=== PATIENT | female | born 1950 ===

== ENCOUNTER → 2017-03-14 | Outpatient (REF) | LOC: ZLAB.WCH 08:44 | DX: Z01.89 Encounter for other specified special examinations (principal) ==

== ENCOUNTER → 2017-08-13 | Outpatient (REF) | LOC: ZLAB.WCH 15:45 | DX: Z01.89 Encounter for other specified special examinations (principal) ==

== ENCOUNTER → 2018-01-15 | Outpatient (REF) | LOC: ZLAB.WCH 18:29 | DX: Z01.89 Encounter for other specified special examinations (principal) ==